=== PATIENT | male | born 2000 | race Caucasian/White ===

== ENCOUNTER 2022-01-16 00:23 | Emergency (ER) | payer OTHER ==
[~2022-01-16] VITALS: Ht 177.8 cm; Wt 68.0 kg
[2022-01-16 00:23] VITALS: BP 144/80
--- NOTE | 2022-01-16 00:23 | NUR ---
DIRK FROM [facility] WITH C/O RT FLANK PAIN, AND VOMITING
[2022-01-16] MEDS ORDERED: KETOROLAC 30 MG/ML VIAL IVP ONE (00:35)
[2022-01-16] MEDS ORDERED: NACL 0.9% 1,000 ML IV ONE (00:35)
[2022-01-16 00:53] LABS: BASOPHILS % (AUTO) 0.3 % (0.0-2.0); EOSINOPHILS % (AUTO) 0.2 % (0.0-4.0); HEMATOCRIT 42.8 % (36-52); HEMOGLOBIN 14.7 g/dL (12.0-18.0); LYMPHOCYTES # (AUTO) 1.3 K/uL (2.0-11.5); LYMPHOCYTES % (AUTO) 12.2 % (20.5-51.1); MEAN CORPUSCULAR HEMOGLOBIN 28 pg (27-31); MEAN CORPUSCULAR HGB CONC 34 g/dL (33-37); MONOCYTES # (AUTO) 0.5 K/uL (0.8-1.0); MONOCYTES % (AUTO) 5.1 % (1.7-9.3); NEUTROPHILS # (AUTO) 8.7 K/uL (1.8-7.7); NEUTROPHILS % (AUTO) 82.2 % (42.2-75.2); PLATELET COUNT (AUTO) 189 K/uL (140-450); RED BLOOD CELL COUNT(AUTO) 5.21 MIL/uL (4.20-6.10); WHITE BLOOD COUNT (AUTO) 10.6 K/uL (4.8-10.8)
--- NOTE | 2022-01-16 01:00 | NUR ---
RETURNED FROM CT
[2022-01-16 01:17] LABS: APPEARANCE,URINE CLEAR (CLEAR); BILIRUBIN,URINE NEGATIVE (NEGATIVE); BLOOD, URINE TRACE-I (NEGATIVE); COLOR,URINE YELLOW (YELLOW); LEUKOCYTE ESTERASE ,URINE NEGATIVE (NEGATIVE); NITRITE, URINE NEGATIVE (NEGATIVE); UGLUCOSE NEGATIVE (NEGATIVE)
[2022-01-16 01:23] LABS: ALBUMIN 4.5 g/dL (3.4-5.0); ANION GAP 14.7 (8-16); CARBON DIOXIDE 25.5 mmol/L (21-32); CREATININE 1.2 mg/dL (0.6-1.3); POTASSIUM 4.2 mmol/L (3.5-5.1); TOTAL BILIRUBIN 0.4 mg/dL (0.0-1.0)
[2022-01-16 01:30] LABS: WBC,URINE 0-5 /HPF (0-5)
[2022-01-16] MEDS ORDERED: NAPR-54 PO (02:32)
--- NOTE | 2022-01-16 02:40 | NUR ---
DR LAGUNA AT BEDSIDE FOR REEXAM AND DISPOSITION
== END 2022-01-16 02:40 | disposition home or self-care (01) ==
LOC: MED 00:23
DX: N23 Unspecified renal colic (principal)
CPT/HCPCS: 36415; 74176; 80053; 81001; 85025; 87086; 96361; 96374; 99284; J1885; J7030